=== PATIENT | male | born 1955 | race Caucasian/White ===

== ENCOUNTER 2019-04-10 10:24 | Day surgery (SDC) | payer MEDICARE ==
[2019-04-03 10:01] LABS: HEMATOCRIT 44.8 % (37.9-51.0); HEMOGLOBIN 15.3 g/dL (13.5-17.0); MEAN CORPUSCULAR HEMOGLOBIN 30.9 pg (27.0-33.4); MEAN CORPUSCULAR HGB CONC 34.1 g/dL (32.0-36.0); MEAN CORPUSCULAR VOLUME 91 fl (80-97); PLATELET COUNT 210 10^3/uL (150-450); RED BLOOD COUNT 4.94 10^6/uL (4.35-5.55); RED CELL DISTRIBUTION WIDTH 14.1 % (11.5-14.0); WHITE BLOOD COUNT 8.2 10^3/uL (4.0-10.5)
[~2019-04-10 10:24] MED LIST: ACETAMINOPHEN 325 MG TABLET PO PRN; CEFAZOLIN SODIUM 2 GM in DEXTROSE 5%-WATER 100 ML IV PRN; LACTATED RINGERS 1000 ML IV PRN; LIDOCAINE 0.5% INJ-PF (5 MG/ML) 50 ML SDV SUBCUT PRN
[2019-04-10] MEDS ORDERED: FENTANYL CITRATE INJ/PF 100 MCG/2 ML AMPUL ONE (11:15)
[2019-04-10] MEDS ORDERED: ONDANSETRON HCL INJ/PF 4 MG/2 ML SDV ONE (11:15)
[2019-04-10] MEDS ORDERED: LIDOCAINE 2% INJ-PF (20 MG/ML) 10 ML AMPUL ONE (11:15)
[2019-04-10] MEDS ORDERED: DEXAMETHASONE SOD PHOSPHATE INJ 4 MG/1 ML VIAL ONE (11:15)
[2019-04-10] MEDS ORDERED: MIDAZOLAM 2 MG/2 ML INJ ONE (11:15)
[2019-04-10] MEDS ORDERED: PROPOFOL INJ 200 MG/20 ML VIAL IV ONE (11:16)
[2019-04-10] MEDS ORDERED: BUPIVACAINE HCL 0.25 % INJ/PF (2.5 MG/1 ML) 30 ML VIAL ONE (11:16)
[2019-04-10] MEDS ORDERED: LIDOCAINE 1%/EPINEPHRINE INJ 20 ML VIAL ONE (11:17)
[2019-04-10] MEDS ORDERED: BUPIVACAINE HCL 0.5%-EPI 1:200000 INJ/PF 30 ML VIAL ONE (11:17)
[2019-04-10] MEDS ORDERED: BUPIVACAINE INJ/PF LIPOSOME/PF 266 MG/20 ML SDV ONE (11:17)
[2019-04-10 11:44] VITALS: BP 225/41
== END 2019-04-10 12:15 | disposition home or self-care (01) ==
LOC: OROUT 10:24
PROVIDERS: ATTEND Surgery
DX: K40.90 Unilateral inguinal hernia, without obstruction or gangrene, not specified as recurrent (principal); Z53.8 Procedure and treatment not carried out for other reasons; Z79.899 Other long term (current) drug therapy; Z85.819 Personal history of malignant neoplasm of unspecified site of lip, oral cavity, and pharynx; Z85.118 Personal history of other malignant neoplasm of bronchus and lung; Z93.0 Tracheostomy status; Z92.21 Personal history of antineoplastic chemotherapy; Z92.3 Personal history of irradiation; Z87.891 Personal history of nicotine dependence
CPT/HCPCS: 36415; 85027; J0690; J7060; C9290; J1100; J2250; J2405; J2704; J3010; J3490

== ENCOUNTER 2019-06-24 07:48 | Day surgery (SDC) | payer MEDICARE ==
[2019-06-18 11:32] LABS: HEMATOCRIT 43.7 % (37.9-51.0); HEMOGLOBIN 15.4 g/dL (13.5-17.0); MEAN CORPUSCULAR HEMOGLOBIN 32.3 pg (27.0-33.4); MEAN CORPUSCULAR HGB CONC 35.3 g/dL (32.0-36.0); MEAN CORPUSCULAR VOLUME 91 fl (80-97); PLATELET COUNT 200 10^3/uL (150-450); RED BLOOD COUNT 4.79 10^6/uL (4.35-5.55); RED CELL DISTRIBUTION WIDTH 13.7 % (11.5-14.0); WHITE BLOOD COUNT 9.1 10^3/uL (4.0-10.5)
[2019-06-24] MEDS ORDERED: CEFAZOLIN INJ 1 GM VIAL ONE (08:19)
[2019-06-24] MEDS ORDERED: LABETALOL HCL INJ 20 MG/4 ML DISP.SYRIN IV ONE (09:15)
[2019-06-24] MEDS: LABETALOL HCL INJ 20 MG/4 ML DISP.SYRIN IV ONE ×4 (09:30→09:45)
[2019-06-24 09:44] LABS: ANION GAP 11 (5-19); BLOOD UREA NITROGEN 18 mg/dL (7-20); CALCIUM 10.9 mg/dL (8.4-10.2); CARBON DIOXIDE 28 mmol/L (22-30); CHLORIDE 97 mmol/L (98-107); GLUCOSE 121 mg/dL (75-110); POTASSIUM 4.6 mmol/L (3.6-5.0)
[2019-06-24] MEDS: HYDRALAZINE HCL INJ/PF 20 MG/1 ML SDV ONE ×2 (09:50→09:55)
[2019-06-24] MEDS ORDERED: MIDAZOLAM 2 MG/2 ML INJ ONE ×2 (10:19→11:11)
[2019-06-24] MEDS ORDERED: FENTANYL CITRATE INJ/PF 100 MCG/2 ML AMPUL ONE (10:19)
[2019-06-24] MEDS ORDERED: PROPOFOL INJ 200 MG/20 ML VIAL IV ONE (10:20)
[2019-06-24] MEDS ORDERED: BUPIVACAINE INJ/PF LIPOSOME/PF 266 MG/20 ML SDV ONE (10:32)
[2019-06-24] MEDS ORDERED: PROMETHAZINE HCL INJ 25 MG/1 ML VIAL IV PRN (11:17)
[2019-06-24] MEDS ORDERED: MORPHINE SULFATE 10 MG/ML INJ IV PRN (11:17)
[2019-06-24] MEDS ORDERED: MEPERIDINE HCL/PF INJ 25 MG/1 ML DISP.SYRIN IV PRN (11:17)
[2019-06-24] MEDS ORDERED: OXYCODONE-ACETAMINOPHEN 5-325 MG TABLET PO PRN (11:17)
[2019-06-24] MEDS ORDERED: LABETALOL HCL INJ 20 MG/4 ML DISP.SYRIN IV PRN (11:17)
[2019-06-24] MEDS ORDERED: DIPHENHYDRAMINE HCL 50 MG/ML VIAL IV PRN (11:17)
[2019-06-24] MEDS ORDERED: EPHEDRINE SULFATE INJ 50 MG/1 ML AMPULE ONE (11:24)
--- NOTE | 2019-06-24 12:09 | Operative Report ---
Nonrecallable Operative Report DATE OF SURGERY: 06/24/19 PREOPERATIVE DIAGNOSIS: right inguinal hernia POSTOPERATIVE DIAGNOSIS: right inguinal hernia OPERATION: right inguinal hernia repair SURGEON: THONY SO SIGNAL OPERATOR: BETTY GALLEGOS ANESTHESIA: Spinal TISSUE REMOVED OR ALTERED: none COMPLICATIONS: none INTRAOPERATIVE FINDINGS: indirect inguinal hernia PROCEDURE: Patient was brought to the operating room awake alert stable condition placed in the operative table after spinal anesthetic was placed. After appropriate timeout and site verification the procedure commenced. The right groin was prepped and draped in usual sterile fashion. A curvilinear incision was made in the right groin dissection was carried down through subtenons tissue with Bovie cautery the external Bleich was opened in line with its fibers after a small incision was made with a 15 blade. The ilioinguinal nerve was protected. The cord structures were then dissected out of the inguinal canal and slung with a [place] drain. The sac was dissected away from the cord structures up proximally to the internal ring open twisted upon itself and ligated with a 0 Ethibond suture. Using a polypropylene plug was placed into the internal ring and fixed there with 2 stitches of 0 Ethibond suture. We then used polypropylene mesh tacked the medial side to the conjoined tendon and the lateral side to the proximal ligament underneath the cord structures. The ends of the mesh approximately were tacked underneath the internal ring. Hemostasis was intact the cord structures and ilioinguinal nerve were returned back to the inguinal canal and the external oblique was closed with a running 2- 0 Vicryl suture. Carolina's fascia was reapproximated with interrupted 3-0 Vicryl and skin was closed with intracuticular 4-0 Biosyn Steri-Strips completed the procedure estimated blood loss was less than 10 cc sponge needle counts were correct x2 the patient was then transferred recovery in stable condition.
[2019-06-24] MEDS ORDERED: HYDROCODONE/ACETAMINOPHEN 10-325 MG TABLET PO PRN (12:14)
--- NOTE | 2019-06-24 12:14 | Discharge Summary ---
Discharge Summary (SDC) - Discharge Final Diagnosis: right inguinal hernia Date of Surgery: 06/24/19 Discharge Date: 06/24/19 Condition: Good Treatment or Instructions: ice packs to rt groin tonight Prescriptions: Hydrocodone/Acetaminophen [Beacon 10-325 mg Tablet] 1 tab PO Q6HP PRN #20 tablet PRN Reason: Referrals: FRAN SYLVESTER FNP [Primary Care Provider] - Discharge Diet: As Tolerated Discharge Activity: Activity As Tolerated, No Lifting Over 10 Pounds Report the Following to Your Physician Immediately: Shortness of Breath, Vomiting, Increase in Pain, Fever over 101 Degrees, Unusual Bleeding - pt needs f/u iwth mi in 10-14 days.
[2019-06-24] MEDS ORDERED: HYDROCODONE/ACETAMINOPHEN 10-325 MG TABLET ONE (15:53)
[2019-06-24 18:12] VITALS: BP 128/89
--- NOTE | 2019-06-25 08:40 | EKG REPORT ---
SEVERITY:- OTHERWISE NORMAL ECG - SINUS RHYTHM ATRIAL PREMATURE COMPLEX : Confirmed by: Shea Price 25-Jun-2019 08:39:21
== END 2019-06-24 18:00 | disposition home or self-care (01) ==
LOC: OROUT 07:48
PROVIDERS: ATTEND Surgery
DX: K40.90 Unilateral inguinal hernia, without obstruction or gangrene, not specified as recurrent (principal); E89.0 Postprocedural hypothyroidism; K21.9 Gastro-esophageal reflux disease without esophagitis; Z87.891 Personal history of nicotine dependence; Z79.899 Other long term (current) drug therapy; Z03.818 Encounter for observation for suspected exposure to other biological agents ruled out; Z85.819 Personal history of malignant neoplasm of unspecified site of lip, oral cavity, and pharynx; Z85.118 Personal history of other malignant neoplasm of bronchus and lung; Z93.0 Tracheostomy status
CPT/HCPCS: 36415 ×2; 85027; 80048; 93005; 93010; 49505; C1781; U0003; J2250; J0690; J3490 ×2; J0360; J2704; C9290; A9270; 830; 87635; J3010